=== PATIENT | male | born 1995 | race Caucasian/White ===

== ENCOUNTER 2023-11-07 08:58 | Emergency (ER) | payer OTHER, SELFPAY ==
[2023-11-07 09:00] VITALS: BP 106/74
[2023-11-07 09:11] VITALS: BMI 22.2
[2023-11-07 09:13] VITALS: BP 123/75
[2023-11-07] MEDS: NSS 1000 IV (09:14)
[2023-11-07 09:28] LABS: % Basophils 0.4 % (0-2); % Eosinophils 0.6 % (0-6); % Immature Granulocytes 0.4 % (0-0.5); % Lymphocytes 14.8 % (20.5-51.1); % Neutrophils 76.8 % (42.2-75.2); Absolute Monocytes 0.5 10^3/uL (0.1-0.6); Absolute Neutrophils 5.1 10^3/uL (1.4-6.5); Hematocrit 38.9 % (39.0-52.0); Hemoglobin 14.1 g/dL (13.0-18.0); Mean Corp Hgb Conc. 36.2 g/dL (33.0-37.0); Mean Corpuscular Hgb 30.1 pg (27.0-31.0); Mean Corpuscular Volume 82.9 fL (80.0-94.0); Nucleated Red Blood Cells % 0 % (-); Platelet Count 189 10^3/uL (130-400); Red Blood Cell Count 4.69 10^6/uL (4.70-6.10); Red Cell Dist. Width 12.1 % (11.5-14.5); White Blood Cell Count 6.7 10^3/uL (4.8-10.8)
--- NOTE | 2023-11-07 09:30 | ED.GENMED ---
History of Present Illness
General
Chief Complaint: Abdominal Symptoms
Source: patient and family
Time Seen by Provider: 11/07/23 09:06
Travel History
Have you had any contact with someone who has COVID-19?: No
Do you have any symptoms of coronavirus? Fever > 100 degrees, chills, cough, shortness of breath, sore throat, loss of taste or smell, muscle aches, or headache?: No
History of Present Illness
History of Present Illness:
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 Patient presented to
an urgent care yesterday was given Zofran with initial relief of symptoms but did not receive a prescription for home use and states that shortly after getting home symptoms started again. He notes some generalized abdominal discomfort with this
but otherwise no other symptoms including bowel changes, urinary symptoms, back or flank pain, chest pain or shortness of breath, fevers or infectious symptoms. Patient states he had a similar episode back in May but that today's symptoms seem
to be worse than that time. Patient social history was significant for smoking marijuana almost daily. States sometimes feels as if marijuana may make his nausea little bit better at times. No known sick contacts, recent travel or recent
antibiotics.
Past History
Past History
ED Past Medical History: None
ED Past Surgical History: Appendectomy
Social History
Tobacco: Non-smoker
Alcohol: None
Drug: Marijuana
Personal: Single
Living: with family
Review of Systems
Review of Systems
All Other Systems: ROS reviewed and negative except as documented in HPI and ROS
Phy Exam
Physical Exam
Physical Exam:
GENERAL: Alert , appears uncomfortable
EYE: clear conjunctiva b/l
HEAD: NCAT
ENT: o/p clr, mmm.
CARDIAC: Regular rate and rhythm .
LUNGS: Clear breath sounds bilaterally, no acute respiratory distress, no wheezes/rales/rhonchi
ABDOMEN: Soft, without focal tenderness, no r/g, no cvat, normal bowel sounds
NEUROLOGICAL: Alert and oriented
SKIN: Warm and dry, skin intact.
MUSCULOSKELETAL: well perfused.
PSYCH: Normal and appropriate interaction.
Scores
Heart Failure Risk
Heart Failure Risk Score: Not Applicable
Heart Score for Chest Pain Patients
STEMI patient?: Not applicable
Withdrawal Assessment of Alcohol
Withdrawal Assessment Completed?: Not applicable
Course
Orders/Labs/Results
Orders:
Orders
11/07/23 09:11
0.9% Sodium Chloride 1000 ml [Nss] 1,000 ml IV BOLUS
11/07/23 09:15
Complete Blood Count/With Diff Urgent
Comprehensive Metabolic Panel Urgent
Lipase Urgent
11/07/23 09:29
Diphenhydramine [Benadryl] 25 mg IV NOW STA
Ondansetron Injectable [Zofran] 4 mg IV NOW STA
CR Obstruct Series W/pa Chest Urgent
Comment:
Reason For Exam: hx obstruction, N/V
11/07/23 09:52
Potassium Chloride [KCl] 40 meq PO NOW STA
11/07/23 10:36
Ketorolac [Toradol] 30 mg IV NOW STA
11/07/23 11:34
Haloperidol Lactate [Haldol] 2 mg IV NOW STA
11/07/23 11:47
EKG [Electrocardiogram (*1)] Urgent
Reason for Study: QTc Monitoring
EKG- Treatment ONCE
11/07/23 12:36
Potassium Chloride [KCl] 40 meq .ROUTE .STK-MED ONE
Abnormal Lab Results
11/07/23
09:15
RBC 4.69 L 10^6/uL
(4.70-6.10)
Hct 38.9 L %
(39.0-52.0)
MPV 11.0 H fL
(7.4-10.4)
Absolute Lymphs (auto) 1.0 L 10^3/uL
(1.2-3.4)
Neutrophils % 76.8 H %
(42.2-75.2)
Lymphocytes % 14.8 L %
(20.5-51.1)
Potassium 3.2 L mmol/L
(3.5-5.1)
Carbon Dioxide 20 L mmol/L
(22-30)
Glucose 108 H mg/dl
(70-99)
Albumin 5.2 H g/dl
(3.5-5.0)
11/07/23 09:15
11/07/23 09:15
Vital Signs
Initial and Last Documented VS:
Initial Vital Signs
Temp Pulse Resp BP Pulse Ox
98.2 F 64 16 106/74 98
11/07/23 09:00 11/07/23 09:00 11/07/23 09:00 11/07/23 09:00 11/07/23 09:00
Last Documented Vital Signs
Temp Pulse Resp BP Pulse Ox
98.2 F 65 14 114/72 98
11/07/23 09:00 11/07/23 13:15 11/07/23 13:15 11/07/23 11:00 11/07/23 13:15
MDM/Problems Addressed
Differential Diagnosis Includes:
Gastroenteritis, gastritis, cannabinoid hyperemesis syndrome, cyclical vomiting, bowel obstruction
MDM/Problems Addressed:
27-year-old male present emergency department for evaluation of nausea and vomiting x 48 hours. Initial relief with Zofran at urgent care but was not given a prescription for this and has been unable to take anything else. Diminished p.o. intake
during this time. Notes daily cannabinoid use. Suspect this to be a likely cause of symptoms. Will check labs and treat with Zofran and Benadryl as well as IV fluids. Given patient's history of previous bowel obstruction will obtain an
obstructive series however I have less suspicion for this given normoactive bowel sounds.
*Pulse Oximetry
Patient hypoxic: no
*Critical Care Note
Total Time (30-74mins, 75-104mins- exclusive of procedures): Not Applicable
Comment
Comment:
Patient with improved nausea but still with abdominal discomfort. 30mg toradol IV ordered
Patient Management
Escalation/DeEscalation of care consider admission/obs:
Following Toradol patient states he is still having pain and now recurrence of nausea. 2 mg of Haldol ordered. Reassessment following
Patient feeling much better following Haldol. Tolerating p.o. Stable for discharge home and aware of return precautions.
ED Attending Note
-
Portions of this chart may have been created with voice recognition software.� Occasional wrong word or��sound alike� substitutions may have occurred due to the inherent limitations of voice recognition software.
Discharge Plan
Departure
Patient Disposition: Home (Routine Discharge)
Date of Disposition: 11/07/23
Time of Disposition: 13:25
Patient with high blood pressure during this ER visit?: No
Discharge Problem:
Nausea and vomiting
Instructions: Nausea and Vomiting, Adult (DC)
Prescriptions:
New
ondansetron 4 mg tablet,disintegrating
4 mg PO TIDPRN PRN (Reason: nausea/vomiting) Qty: 10 0RF
No Action
hydrocodone-acetaminophen [Vicodin] 1 EACH tablet
1 ea PO Q6HPRN PRN (Reason: pain) Qty: 20 0RF
Referrals:
NONE,* [Family Provider] -
Stand Alone Forms: Return to Work
Interventions
Interventions:
*Risk Screen - Suicide Last Done: 11/07/23 09:12
*General Assessment Last Done: 11/07/23 09:12
*Neglect/Abuse Screening Last Done: 11/07/23 09:12
*ED COVID-19 Vaccine History Last Done: 11/07/23 09:00
*Nursing Disposition Last Done: 11/07/23 13:34
KI-Dgzduo-Xdvhxgorqu Assessment Last Done: 11/07/23 09:12
Discharge Date and Time
Discharge Date/Time: 11/07/23 14:12
Print Language: GREEK
[2023-11-07 09:38] LABS: AST (SGOT) 25 U/L (17-59); Albumin 5.2 g/dl (3.5-5.0); Alkaline Phosphatase 50 U/L (38-126); Blood Urea Nitrogen 10 mg/dl (9-20); Calcium 10.1 mg/dl (8.4-10.2); Carbon Dioxide 20 mmol/L (22-30); Chloride 105 mmol/L (98-107); Estimated Creatinine Clearance > 125 ml/min; Glucose 108 mg/dl (70-99); Lipase 172 U/L (23-300); Potassium 3.2 mmol/L (3.5-5.1); Sodium 141 mmol/L (135-145); Total Protein 7.8 g/dl (6.3-8.2); eGFR > 60.00
[2023-11-07] MEDS: BENADRYL 25 MG IV (09:51)
[2023-11-07] MEDS: ZOFRAN 4 MG IV (09:51)
[2023-11-07 10:00] VITALS: BP 128/60
[2023-11-07 10:29] LABS: ALT (SGPT) 20 U/L (0-50)
[2023-11-07] MEDS: TORADOL 30 MG IV (10:39)
[2023-11-07 11:00] VITALS: BP 114/72
[2023-11-07] MEDS: HALDOL 2 MG IV (11:40)
[2023-11-07] MEDS: KCL 40 MEQ PO (12:38)
== END 2023-11-07 14:12 | disposition home or self-care (01) ==
LOC: EMR 08:58
PROVIDERS: Physician Assistant Medical; EMERGENCY PHYSICIAN Emergency Medicine
DX: R11.2 Nausea with vomiting, unspecified (principal); F12.90 Cannabis use, unspecified, uncomplicated; Z90.49 Acquired absence of other specified parts of digestive tract
CPT/HCPCS: 99283; 96374; 96375; 96361; 74022; 80053; 83690; 85025; 93005